=== PATIENT | female | born 1955 | race Caucasian/White ===

== ENCOUNTER 2019-04-19 14:25 | Emergency (ER) | payer OTHER ==
[~2019-04-19] VITALS: Ht 165.1 cm; Wt 68.0 kg
[~2019-04-19 14:25] MED LIST: ALTACE2.5 M1 PO; ALTACE2.5 MG PO; ALTACE5 MG PO; ASA-EC81 MG PO; CLONAZEPAM1 MG PO; CLONAZEPAM2 MG PO; CRESTOR10 MG PO; DALMANE30 MG PO; EFFEXOR XR75 MG PO; FLEXERIL10 MG PO; FOLIC ACID1 MG PO; FOSAMAX5 MG PO; FOSAMAX70 MG PO; GABAPENTIN300 M1 PO; GABAPENTIN400 MG PO; GEMFIBROZIL600 MG PO; HUMALOG100 U/ML; HUMULIN 50/50 V10 ML SQ; HYDROCHLOROTHIA25 MG PO; HumaLOG 100 UNIT/1 M SUBCUTANEO; LANTUS100 U/ML; LEVOXYL25 MCG PO; Lantus 1000 U/10 ML SUBCUTANEO; MEDROLPACK PO; METHYLPREDNISOLO4 MG PO; NABUMETONE500 MG PO; NEURONTIN800 MG PO; Neurontin PO; QUETIAPINE FUM100 MG PO; RANITIDINE HCL150 M1 PO; RESTORIL30 MG PO; SEROQUEL50 MG PO; SIMVASTATIN20 MG PO; SPIRONOLACTONE25 MG PO; SYNTHROID88 MCG; SYNTHROID88 MCG PO; TRAMADOL HCL-AP1 TAB PO; TUSSI PRES-B L120 M1 PO; VITAMIN D32000 UNI1 PO; ZANTAC300 MG PO; ZITHROMAX TRI-500 MG PO; ZOLOFT100 MG PO; [UNRECOGNIZED DRUG - OTHER]; [UNRECOGNIZED DRUG - OTHER]; [UNRECOGNIZED DRUG - OTHER]
[2019-04-19] MEDS ORDERED: ROPINIROLE HCL2 M1 PO (17:35)
== END 2019-04-19 17:49 | disposition home or self-care (01) ==
LOC: ER 14:25
DX: G25.81 Restless legs syndrome (principal)